=== PATIENT | female | born 1980 | race Caucasian/White ===

== ENCOUNTER 2016-04-26 13:11 | Emergency (ER) | payer OTHER ==
[2016-04-26] MEDS ORDERED: ACETAMINOPHEN 325 MG TABLET ONE (14:00)
[2016-04-26] MEDS ORDERED: IBUPROFEN 600 MG TABLET ONE (14:00)
--- NOTE | 2016-04-26 15:10 | RAD ---
RIGHT ANKLE 3 VIEWS HISTORY: Right ankle pain and swelling. COMPARISONS: None. TECHNIQUE: Frontal, lateral, and oblique views of the right ankle. ALIGNMENT: Grossly unremarkable. Ankle mortise intact. FRACTURE: No displaced acute fracture. SOFT TISSUES: Diffuse soft tissue swelling and joint effusion. RADIOOPAQUE FOREIGN BODY: None. IMPRESSION: No gross malalignment or displaced acute fracture noted. Diffuse ankle soft tissue swelling. Small joint effusion.
== END 2016-04-26 15:32 | disposition home or self-care (01) ==
LOC: ED 13:11
DX: S93.401A Sprain of unspecified ligament of right ankle, initial encounter (principal); W18.30XA Fall on same level, unspecified, initial encounter; Y93.01 Activity, walking, marching and hiking; Y92.413 State road as the place of occurrence of the external cause
CPT/HCPCS: 73610; 99283 ×2; A9270 ×2